=== PATIENT | male | born 1955 | race Caucasian/White ===

== ENCOUNTER 2020-06-22 06:33 | Outpatient (CLI) | payer OTHER ==
[2020-06-22 09:51] LABS: Bilirubin Neg (Negative); Blood, Urine 10 (Negative); Clarity Clear (Clear); Glucose, Urine (Dipstick) Normal (Negative); Ketone, Urine Negative (Negative); Leukocyte 25 (Negative); Nitrite Negative (Negative); Protein, Urine (Dipstick) Negative (Neg-Trace); Specific Gravity, Urine 1.025 (1.002-1.036); Urobilinogen Normal mg/dL (Less than 2)
[2020-06-22 10:18] LABS: Mean Corpuscular Hemoglobin 28.4 PG (27.0-33.0); Mean Platelet Volume 9.7 fl (7.4-10.4); Platelet Count 230 10x3/uL (130-400); RBC Distribution Width 13.3 % (11.5-14.5); Red Blood Cell (RBC) Count 5.64 10x6/uL (4.40-5.80); White Blood Cell (WBC) Count 5.9 10x3/uL (4.5-11.0)
[2020-06-22 10:20] LABS: Anion Gap 14 mmol/L (10-20); BUN (Urea Nitrogen) 20 mg/dL (8.4-25.7); Calc. Creatinine Clearance 0 mL/min (70-130); Calcium 9.6 mg/dL (7.8-10.44); Carbon Dioxide 27 mmol/L (23-31); Chloride 103 mmol/L (98-107); Estimated GFR-MDRD 75; Glucose 79 mg/dL (80-115); Potassium 4.6 mmol/L (3.5-5.1); Sodium 139 mmol/L (136-145)
[2020-06-22 10:40] LABS: PTT 25.5 sec (22.0-33.0); Prothrombin Time 10.5 sec (9.5-12.1)
[2020-06-22 11:32] LABS: Bacteria/HPF Rare-Few HPF (None Seen); Squamous Epithelial 0-3 HPF (0-3); WBC/HPF 0-3 HPF (0-3)
[2020-06-22 18:59] LABS: SARS-CoV-2 MS2 Positive; SARS-CoV-2 N Gene Negative; SARS-CoV-2 S Gene Negative; SARS-CoV-2 by NAA Not Detected (NotDetected); SARS-CoV-2 orf1ab Negative
== END 2020-06-22 06:34 | disposition home or self-care (01) ==
LOC: LABBT 06:33
PROVIDERS: ATTEND Urology
DX: Z01.812 Encounter for preprocedural laboratory examination (principal); R31.9 Hematuria, unspecified; Q63.9 Congenital malformation of kidney, unspecified; Z20.828 Contact with and (suspected) exposure to other viral communicable diseases
CPT/HCPCS: 80048; 81001; 85027; 85610; 85730; 87086; 87635; U0003

== ENCOUNTER 2020-06-27 06:44 | Day surgery (SDC) | payer OTHER, SELFPAY ==
[2020-06-24 11:58] VITALS: BMI 23.6
[2020-06-27] MEDS ORDERED: Iothalamate Meglumine 60% 50 ML VIAL FS ONE (08:27)
[2020-06-27] MEDS ORDERED: Fentanyl 100 MCG/2 ML VIAL ONE (08:33)
[2020-06-27] MEDS ORDERED: Famotidine/PF 20 mg/2ml Vial ONE (08:33)
--- NOTE | 2020-06-27 10:13 | OP ---
DATE OF PROCEDURE: 06/27/2020 PREOPERATIVE DIAGNOSIS: History of hematuria and a CAT scan that shows a filling defect in the superior renal calyceal system. POSTOPERATIVE DIAGNOSIS: History of hematuria and a CAT scan that shows a filling defect in the superior renal calyceal system. PROCEDURES PERFORMED: Cystoscopy, right renal pelvic washings and brushings, right retrograde, and right stent. ANESTHETIC: General. ESTIMATED BLOOD LOSS: Minimal. FINDINGS: He had a little narrowing of the fossa and a short stricture at the bulb. These were all easily passed with a 21-[place] sheath. He had a large prostate gland with a fairly large intravesical lobe. He had 1+ bladder trabeculation. He had no obvious tumor, foreign body, or stones. He had 2 ureteral orifices with clear efflux. The fluids from the right kidney washings were sent as well as brushings. These were done as far up in the kidney as possible because of location of the lesion on his CAT scan. A retrograde study showed dilated calyceal systems, which are something that his CAT scan showed he had very narrowed proximal ureter for a number of centimeters. It was quite narrow. For this reason, we would not try to do ureteroscopy. He had some clubbing of the calyceal system. I could not obviously see any filling defects. DRAINS PLACED: 6 x 24 Polaris double-J stent with a string attached. DESCRIPTION OF PROCEDURE: Obtained written and verbal consent from the patient after receiving IV antibiotics. He was taken to the operating suite. He was placed in a supine position on the treatment table. PlexiPulses were placed on his lower extremities and turned on. He was given a general anesthetic, oral obturator intubation. He was placed in the dorsal lithotomy position, sterilely prepped and draped. Fluoroscopy unit was placed over him. [employer]ant KUB was taken. Cystoscopy was performed with a well lubricated 21-[place] sheath and a 30-degree lens as well as a video camera and monitor. This was passed under direct vision through the male urethra into the urinary bladder. The bladder was filled and emptied number of times being examined with both the 30 and the 70-degree lens. At this point, a 5-[place] Pollack catheter was flushed with saline and placed in the right ureteral orifice and placed up to the size it would go up the course of the right ureter into the renal proximal collecting system. We then used about 30 mL of saline to flush back and forth filling out this region, which was sent for cytology. We then brought in a ureteral brush, placed it through the Pollack catheter and brushed the upper regions of this renal pelvis and calyceal system. We then repeated the washings after the brushings and sent this with the initial washings. At this point, we marlin back the Pollack catheter mid ureter, injected contrast showing a very small caliber right ureter, dilated renal pelvis with some clubbing of the calyceal system. I did not see obvious filling defect. Guidewire was then passed through the Pollack catheter up in the kidney. Because of the narrowness of the ureter, we did not try to force the ureteroscope up in this region. We removed the Pollack catheter and over a guidewire, passed a 6 x 24 Polaris double-J stent. The upper curl coiled in the renal pelvis and distal in the bladder when the wire was removed. String was left attached and was cut a few centimeters exiting the urethral meatus. The penis was circumcised. Testicles were descended without mass or tenderness. The rectal exam revealed no evidence of rectal lesion. He had a moderately enlarged prostate gland. On transrectal evaluation, he had no prostate nodule. At this point, the patient was taken out of dorsal lithotomy position, awakened, extubated, and taken by stretcher to recovery room. Job ID: [id number]
--- NOTE | 2020-06-27 10:36 | RAD ---
RETROGRADE IVP: COMPARISON: CT abdomen/pelvis 05/31/2020. HISTORY: Ureteral stent placement. FINDINGS/IMPRESSION: Multiple limited intraoperative fluoroscopic views from a retrograde IVP were submitted for interpret ation. There is a stent in place in the right renal collecting system. There is mild right-sided hy dronephrosis. There is again a questionable small filling defect in one of the right renal calyces. The last image shows a stent in good position. There appears to be a calcification projecting over the lower pole of the left kidney. POS: [facility]
[2020-06-27] MEDS ORDERED: Lidocaine 1% PF 5 ML VIAL ONE (10:40)
[2020-06-27] MEDS ORDERED: PROPOFOL 200 MG/20 ML VIAL ONE (10:40)
[2020-06-27] MEDS ORDERED: Ondansetron PF 4 MG/2 ML Vial ONE (10:40)
[2020-06-27] MEDS ORDERED: Metoclopramide HCl 10 MG/2 ML VIAL ONE (10:40)
== END 2020-06-27 11:50 | disposition home or self-care (01) ==
LOC: SDC 06:44
PROVIDERS: ATTEND Urology
PROC: 0T768DZ Dilation of Right Ureter with Intraluminal Device, Via Natural or Artificial Opening Endoscopic (ICD-10-PCS; principal; 2020-06-27)
DX: N13.5 Crossing vessel and stricture of ureter without hydronephrosis (principal); D49.511 Neoplasm of unspecified behavior of right kidney; E11.9 Type 2 diabetes mellitus without complications; I10 Essential (primary) hypertension; E78.5 Hyperlipidemia, unspecified; E03.9 Hypothyroidism, unspecified; Z79.84 Long term (current) use of oral hypoglycemic drugs; Z79.899 Other long term (current) drug therapy
CPT/HCPCS: 74420; 88104; 88112; J2405; J2704; J2765; J3010; S0028

== ENCOUNTER 2020-07-14 06:19 | Outpatient (CLI) | payer OTHER ==
[2020-07-14 22:36] LABS: SARS-CoV-2 MS2 Positive; SARS-CoV-2 N Gene Negative; SARS-CoV-2 S Gene Negative; SARS-CoV-2 by NAA Not Detected (NotDetected); SARS-CoV-2 orf1ab Negative
== END 2020-07-14 06:20 | disposition home or self-care (01) ==
LOC: LABBT 06:19
PROVIDERS: ATTEND Urology
DX: Z01.812 Encounter for preprocedural laboratory examination (principal); Z20.828 Contact with and (suspected) exposure to other viral communicable diseases
CPT/HCPCS: 87635; U0003

== ENCOUNTER 2020-07-18 07:21 | Day surgery (SDC) | payer OTHER ==
[2020-07-15 10:36] VITALS: BMI 23.6
[2020-07-18] MEDS ORDERED: Levofloxacin 500 mg/D5W 100 ml Premix Bag ONE (07:53)
[2020-07-18] MEDS ORDERED: Fentanyl 100 MCG/2 ML VIAL ONE ×2 (09:06→10:25)
[2020-07-18] MEDS ORDERED: Iothalamate Meglumine 60% 50 ML VIAL FS ONE (09:40)
[2020-07-18] MEDS ORDERED: Dexamethasone 20 MG/5 ML VIAL ONE (09:41)
[2020-07-18] MEDS ORDERED: Ondansetron PF 4 MG/2 ML Vial ONE (09:41)
[2020-07-18] MEDS ORDERED: PROPOFOL 200 MG/20 ML VIAL ONE (09:41)
[2020-07-18] MEDS ORDERED: Lidocaine 1% PF 5 ML VIAL ONE (09:41)
[2020-07-18] MEDS ORDERED: Glycopyrrolate 0.2 MG/ML 5 ML SYRINGE ONE (09:41)
[2020-07-18] MEDS ORDERED: Rocuronium Bromide 10 MG/ML (10ML VIAL) ONE (09:41)
[2020-07-18] MEDS ORDERED: Morphine 4 MG/ML VIAL ONE (11:04)
--- NOTE | 2020-07-18 11:55 | RAD ---
XR IVP Retrograde History: Ureteroscopy Comparison: IVP examination June 27, 2020 Findings: Multiple fluoroscopic images were obtained. Moderate right-sided hydronephrosis. Impression: Fluoroscopy for procedure purposes.
--- NOTE | 2020-07-18 12:03 | OP ---
DATE OF PROCEDURE: 07/18/2020 PREOPERATIVE DIAGNOSIS: Right renal pelvic filling defect. POSTOPERATIVE DIAGNOSES: 1. Right renal pelvic filling defect. 2. Right lower pole stones. PROCEDURES PERFORMED: 1. Cystoscopy. 2. Right flexible ureteroscopy. 3. Nephroscopy. 4. Retrieval of 2 small lower pole renal stones. SPECIMENS SENT: Larger of the one small stones was sent for stone analysis. ESTIMATED BLOOD LOSS: Minimal. DRAINS: 6 x 24 Polaris double-J stent. FINDINGS: He had mild meatal stenosis. He had large trilobar BPH. He had no evidence of bladder tumor, foreign body, or stone and the right ureter showed no abnormality. There was a mildly dilated right renal pelvis. The calyceal system showed no evidence of renal tumor or transitional cell tumor of the collecting system. I think the area of suspicion in the upper pole is a renal papilla. All of the calyceal both upper, mid, and lower were examined individually. In the lower calyceal system, there were 2 small stones, which were basketed and removed. The larger one was sent for analysis. DESCRIPTION OF PROCEDURE: After obtaining written and verbal consent from the patient after receiving IV antibiotics, the patient was taken to the operating suite. He was placed in a supine position on the treatment table. PlexiPulses were placed on his lower extremities and turned on. He was given a general anesthetic and oral intubation. He was placed in the dorsal lithotomy position, sterilely prepped and draped. Fluoroscopy unit was placed over him and a crate maker KUB was taken. The double-J stent was removed through the tip of the urethral meatus via the string and a guidewire was fed up through this and fed up into the region of renal pelvis. Cystoscopy was performed adjacent to the guidewire. The bladder was filled and emptied. There were no obvious abnormalities noted. The instruments were removed and a dual-lumen catheter was placed over the guidewire and about a 3rd way up the right ureter. Contrast was injected to fill out the ureter and renal pelvis and then a stiff blue guidewire was placed through the 2nd port and up into the region of the renal pelvis and the dual-lumen catheter was removed. The ureteral sheath with obturator was placed over the stiff wire up into the renal pelvis, and the obturator sheath and Stiff wire were removed. A flexible ureteroscope was brought in and placed through the sheath and we examined the renal pelvis and all of the calyceal systems. The upper calyceal systems were examined twice both at the start and then after we had completed looking at all of them and removing the 2 lower pole stones. The stones seen in the lower pole were basketed with a Nitinol basket and removed. As we brought out the ureteral sheath, we looked at the ureter under direct vision with the flexible cystoscope. The guidewire was back loaded through the cystoscope and a stent was placed over the guidewire and pushed up into place with aid of a pusher, so its proximal end coiled in the renal pelvis and its distal end coiled in the bladder when the wire was removed. The bladder was drained. The instruments were removed. The Mcknight catheter had been removed at the start of the case and was not replaced. We will see if he can urinate adequately today. He was awakened, extubated, and taken by stretcher to the recovery room. Job ID: [id number]
== END 2020-07-18 13:50 | disposition home or self-care (01) ==
LOC: SDC 07:21
PROVIDERS: ATTEND Urology
PROC: 0T768DZ Dilation of Right Ureter with Intraluminal Device, Via Natural or Artificial Opening Endoscopic (ICD-10-PCS; principal; 2020-07-18)
PROC: 0TC38ZZ Extirpation of Matter from Right Kidney Pelvis, Via Natural or Artificial Opening Endoscopic (ICD-10-PCS; principal; 2020-07-18)
DX: N20.0 Calculus of kidney (principal); N35.919 Unspecified urethral stricture, male, unspecified site; N40.0 Benign prostatic hyperplasia without lower urinary tract symptoms; E11.9 Type 2 diabetes mellitus without complications; I10 Essential (primary) hypertension; Z79.84 Long term (current) use of oral hypoglycemic drugs; Z79.899 Other long term (current) drug therapy
CPT/HCPCS: 74420; 82365; 88300; J1100; J1956; J2270; J2405; J2704; J3010